=== PATIENT | female | born 1995 | race African-American/Black ===

== ENCOUNTER 2023-11-04 15:17 | Emergency (ER) | payer OTHER ==
[2023-11-04] MEDS ORDERED: LOPERAMIDE HCL 2 MG CAPSULE ONE (15:53)
[2023-11-04] MEDS ORDERED: DICYCLOMINE HCL 10 MG CAPSULE ONE (15:53)
[2023-11-04] MEDS ORDERED: MAG HYDROX/AL HYDROX/SIMETH 30 ML UNIT-DOSE CUP ONE (15:54)
[2023-11-04] MEDS: MAG HYDROX/AL HYDROX/SIMETH 30 ML UNIT-DOSE CUP PO ONE (16:09)
[2023-11-04] MEDS: SODIUM CHLORIDE 0.9% 500 ML INFUS.BAG IV ONE (16:09)
[2023-11-04] MEDS: LOPERAMIDE HCL 2 MG CAPSULE PO ONE (16:09)
[2023-11-04] MEDS: DICYCLOMINE HCL 10 MG CAPSULE PO ONE (16:09)
[2023-11-04 16:17] VITALS: BP 137/99; PULSE 91; RESP 18; TEMP 97.3; BMI 22.0
[2023-11-04 16:18] LABS: HCG,QUALITATIVE URINE Negative
[2023-11-04] MEDS ORDERED: FAMOTIDINE 20 MG/50 ML IVPB 20 MG/50 ML MG IVPB ONE ×2 (16:56→17:31)
[2023-11-04] MEDS: PANTOPRAZOLE SODIUM 40 MG VIAL IVPUSH ONE (17:20)
[2023-11-04] MEDS: ACETAMINOPHEN 1000 MG/100 ML BAG IVPB ONE (17:25)
[2023-11-04] MEDS ORDERED: PANTOPRAZOLE SODIUM 40 MG VIAL ONE (17:31)
[2023-11-04] MEDS ORDERED: ACETAMINOPHEN INJECTION 100 ML IVPB ONE (17:31)
[2023-11-04 17:38] LABS: HEMATOCRIT 42.5 % (32.4-45.2); HEMOGLOBIN 14.2 G/dL (10.7-15.3); MCH 29.4 pg (25.7-33.7); MCHC 33.3 g/dl (32.0-36.0); MEAN CELL VOLUME 88.1 fl (80-96); MEAN PLT VOLUME 9.2 fl (7.5-11.1); PLATELET COUNT 219.8 10^3/uL (134-434); RBC 4.82 10^6/uL (3.60-5.2); RDW 14.1 % (11.6-15.6); WHITE BLOOD COUNT 8.9 10^3/uL (4.0-10.8)
[2023-11-04 17:49] LABS: ALBUMIN 4.8 g/dl (3.4-5.0); BILIRUBIN,TOTAL 0.6 mg/dl (0.2-1); CALCIUM 9.8 mg/dl (8.5-10.1); CREATININE 1.1 mg/dl (0.6-1.3); POTASSIUM 3.9 mmol/L (3.5-5.1); TOT PROT 7.7 g/dl (6.4-8.2)
[2023-11-04 19:02] LABS: PLATELET ESTIMATE ADEQUATE
== END 2023-11-04 18:35 | disposition home or self-care (01) ==
LOC: FER 15:17
PROC: 3E033NZ Introduction of Analgesics, Hypnotics, Sedatives into Peripheral Vein, Percutaneous Approach (ICD-10-PCS; principal; 2023-11-04)
PROC: 3E033GC Introduction of Other Therapeutic Substance into Peripheral Vein, Percutaneous Approach (ICD-10-PCS; 2023-11-04)
DX: R07.9 Chest pain, unspecified (principal); R19.7 Diarrhea, unspecified; E86.0 Dehydration; R11.0 Nausea; K52.9 Noninfective gastroenteritis and colitis, unspecified
CPT/HCPCS: 36415; 80053; 81003; 83690; 84703; 85027; 99284-25; J0131